=== PATIENT | male | born 1975 | race African-American/Black ===

== ENCOUNTER 2018-08-25 21:07 | Inpatient (IN) | payer MEDICAID ==
[~2018-08-25] VITALS: Ht 175.3 cm; Wt 62.2 kg
[~2018-08-25 21:07] MED LIST: SODIUM CHLORIDE 0.9% 10ML VIAL ONE; VECURONIUM BROMIDE 10 MG/VIAL IV ONE
[2018-08-25] MEDS ORDERED: ONDANSETRON HCL 4MG/2ML INJ IV STA (22:44)
[2018-08-25] MEDS ORDERED: SODIUM CHLORIDE 0.9% 1000ML BAG (SEPSIS BOLUS) IV ONE (22:45)
[2018-08-25] MEDS ORDERED: VANCOMYCIN 1 G PREMIX 200 ML IV ONE (22:45)
[2018-08-25] MEDS ORDERED: PIPERACILLIN/TAZ 3.375G PREMIX 50 ML IV ONE (22:45)
[2018-08-25] MEDS ORDERED: MIDAZOLAM HCL 2 MG/2 ML VIAL IV ONE (23:00)
[2018-08-25 23:29] LABS: CLARITY URINE TURBID (CLEAR); KETONES URINE 1+ (NEGATIVE); LEUKOCYTE ESTERASE URINE 3+ (NEGATIVE); NITRITE URINE POSITIVE (NEGATIVE); OCCULT BLOOD URINE 3+ (NEGATIVE); PROTEIN URINE 3+ (NEGATIVE); SPECIFIC GRAVITY URINE 1.013 (1.005-1.030)
[2018-08-25 23:31] LABS: BG BASE EXCESS -4.6 mmol/L (-2.0-2.0); BG CARBOXYHEMOGLOBIN 0.7 % (0.5-1.5); BG DEOXYHEMOGLOBIN 2.5 % (0.0-5.0); BG FRACTION INSPIRED OXYGEN 21; BG HCO3 ACT 18.6 mmol/L (22.0-26.0); BG OXYGEN SATURATION 97.5 % (92.0-98.5); BG OXYHEMOGLOBIN 96.8 % (94.0-97.0); BG PCO2 27.7 mmHg (35.0-45.0); BG PH 7.445 (7.350-7.450); BG PO2 100.5 mmHg (75.0-100.0); BG SAMPLE SITE RIGHT RADIAL; BG TOTAL HEMOGLOBIN 8.7 g/dL (12.0-18.0); BG VENT MODE ROOM AIR
[2018-08-25 23:34] LABS: COLOR URINE BLOODY (YELLOW)
[2018-08-25 23:57] LABS: *AMPHETAMINES SCREEN URINE PRESUMTIVE POSITIVE (NEGATIVE); *BARBITURATES SCREEN URINE NEGATIVE (NEGATIVE); *BENZODIAZEPINES SCREEN URINE NEGATIVE (NEGATIVE); *COCAINE SCREEN URINE PRESUMTIVE POSITIVE (NEGATIVE)
[2018-08-25 23:58] LABS: CANNABINOID URINE SCREEN PRESUMTIVE POSITIVE (NEGATIVE); METHADONE URINE SCREEN NEGATIVE (NEGATIVE); OPIATES URINE SCREEN NEGATIVE (NEGATIVE); PHENCYCLIDINE URINE SCREEN PRESUMTIVE POSITIVE (NEGATIVE)
[2018-08-26] VITALS (58 sets, daily range): BP systolic 82–154; BP diastolic 42–113
[2018-08-26 00:11] LABS: HEMATOCRIT. 28.6 % (42.0-52.0); HEMOGLOBIN. 8.7 g/dL (14.0-18.0); MEAN CORPUSCULAR HEMOGLOBIN 21.6 pg (28.0-32.0); MEAN CORPUSCULAR VOLUME 71.3 fL (80.0-94.0); MEAN PLATELET VOLUME 6.9 fl (7.4-10.4); PLATELET 527 x1000/uL (130-400); RED BLOOD CELL COUNT 4.01 mill/uL (4.7-6.1); RED CELL DISTRIBUTION WIDTH 24.3 % (11.6-14.6)
[2018-08-26] MEDS ORDERED: MIDAZOLAM HCL 2 MG/2 ML VIAL IV ONE (00:15)
[2018-08-26 00:17] LABS: PROTHROMBIN TIME 10.4 sec (9.1-11.1)
[2018-08-26 00:21] LABS: CHLORIDE 99 mEq/L (98-107)
[2018-08-26 00:25] LABS: ETHANOL BLOOD < 10 mg/dL
[2018-08-26 00:29] LABS: CREATINE KINASE 327 IU/L (39-308)
[2018-08-26] MEDS ORDERED: HALOPERIDOL LACTATE 5MG/ML VIAL IM ONE (01:30)
[2018-08-26] MEDS ORDERED: DIPHENHYDRAMINE 50MG/ML VIAL IV ONE (01:30)
[2018-08-26] MEDS ORDERED: NOREPINEPHRINE 4 MG in DEXT 5% WATER 250 ML IV STA (01:37)
[2018-08-26] MEDS ORDERED: NOREPINEPHRINE 4MG/250ML PMX 250 ML IV PRN (02:00)
[2018-08-26 02:03] LABS: ATYPICAL LYMPHOCYTES 2; NUCLEATED RED BLOOD CELLS 2 /100 WBC; PLATELET ESTIMATE INCREASED
[2018-08-26] MEDS ORDERED: VECURONIUM BROMIDE 10 MG/VIAL IV ONE (02:15)
[2018-08-26] MEDS ORDERED: PROPOFOL 10MG/ML 100ML 100 ML IV ONE ×2 (02:15→07:58)
[2018-08-26] MEDS ORDERED: IOHEXOL-300 100 ML BOTTLE ONE (03:29)
[2018-08-26 03:30] LABS: BG CARBOXYHEMOGLOBIN 0.8 % (0.5-1.5); BG DEOXYHEMOGLOBIN 1.6 % (0.0-5.0); BG FRACTION INSPIRED OXYGEN 40; BG HCO3 ACT 16.6 mmol/L (22.0-26.0); BG METHEMOGLOBIN 0.2 % (0.0-1.5); BG OXYGEN SATURATION 98.4 % (92.0-98.5); BG OXYHEMOGLOBIN 97.4 % (94.0-97.0); BG PCO2 30.2 mmHg (35.0-45.0); BG PH 7.358 (7.350-7.450); BG PO2 122.5 mmHg (75.0-100.0); BG SAMPLE SITE RIGHT RADIAL; BG TIDAL VOLUME(mL) 500 mL; BG TOTAL HEMOGLOBIN 7.9 g/dL (12.0-18.0); BG VENT MODE VENT - A/C; BG VENT RATE 14 set
[2018-08-26] MEDS ORDERED: MIDAZOLAM HCL 50 MG in DEXTROSE 5% WATER 40 ML IV PRN ×4 (05:15)
[2018-08-26] MEDS ORDERED: LORAZEPAM 2MG/ML CPJ IV PRN (08:15)
[2018-08-26] MEDS ORDERED: ENOXAPARIN 40MG/0.4ML SYR SUBCUT SCH (08:15)
[2018-08-26] MEDS ORDERED: MORPHINE SULFATE 4 MG/ML CPJ (NOT FOR IM USE) IV PRN ×2 (08:15→16:15)
[2018-08-26] MEDS ORDERED: HYDROCODONE/ACETAMINOPHEN 5/325MG TABLET PO PRN (08:15)
[2018-08-26] MEDS ORDERED: CEFTRIAXONE 1 G PREMIX 50 ML IV SCH (10:00)
[2018-08-26] MEDS ORDERED: IPRATROPIUM/ALBUTEROL 0.5-3(2.5)MG/3ML NEB HHN PRN (10:00)
[2018-08-26 10:15] LABS: BASOPHILS % 0.2 % (0.0-2.0); HEMATOCRIT. 25.5 % (42.0-52.0); HEMOGLOBIN. 7.7 g/dL (14.0-18.0); MEAN CORPUSCULAR HEMOGLOBIN 21.8 pg (28.0-32.0); MEAN CORPUSCULAR VOLUME 72.4 fL (80.0-94.0); MEAN PLATELET VOLUME 6.6 fl (7.4-10.4); MONOCYTES % 3.4 % (2.0-8.0); NEUTROPHILS % 83.4 % (40.0-76.0); PLATELET 487 x1000/uL (130-400); RED BLOOD CELL COUNT 3.52 mill/uL (4.7-6.1)
[2018-08-26 10:33] LABS: CHLORIDE 109 mEq/L (98-107)
[2018-08-26] MEDS: PANTOPRAZOLE SODIUM 40 MG/VIAL IV SCH (11:20)
[2018-08-26] MEDS: ENOXAPARIN 30MG/0.3ML SYR SUBCUT SCH ×2 (11:24→23:58)
[2018-08-26] MEDS: SODIUM CHLORIDE 0.9% 1,000 ML IV SCH ×3 (11:24→20:47)
[2018-08-26] MEDS: PROPOFOL 10MG/ML 100ML 100 ML IV PRN ×3 (11:37→19:53)
[2018-08-26] MEDS: IPRATROPIUM/ALBUTEROL 0.5-3(2.5)MG/3ML NEB HHN SCH ×3 (12:00→21:06)
[2018-08-26] MEDS: FENTANYL CITRATE/PF 500 MCG in SODIUM CHLORIDE 0.9% 40 ML IV PRN ×3 (12:39→22:32)
[2018-08-26 12:55] LABS: HEPATITIS B SURFACE ANTIGEN NEGATIVE
[2018-08-26 13:25] LABS: HEPATITIS A AB IGM NEGATIVE (NEGATIVE)
[2018-08-26] MEDS ORDERED: NOREPINEPHRINE 32 MG in DEXT 5% WATER 468 ML IV PRN (14:00)
[2018-08-26 15:55] LABS: CREATINE KINASE MB FRACTION 21.4 ng/mL (0.5-3.6)
[2018-08-26 16:05] LABS: CREATINE KINASE 1334 IU/L (39-308)
[2018-08-26] MEDS: LORAZEPAM 2MG/ML CPJ IV PRN (16:30)
[2018-08-26] MEDS: PIPERACILLIN/TAZOBACTAM 3.375 G in DEXT 5% WATER 100 ML IV SCH ×2 (17:08→17:16)
[2018-08-26] MEDS: VANCOMYCIN 1250MG in DEXTROSE 5% WATER 250ML IV SCH ×2 (17:43→23:58)
[2018-08-26] MEDS: ACETAMINOPHEN 325MG TABLET PO PRN (19:38)
[2018-08-26 23:23] LABS: CREATINE KINASE MB FRACTION 17.4 ng/mL (0.5-3.6)
[2018-08-26 23:32] LABS: CREATINE KINASE 1654 IU/L (39-308)
[2018-08-27] VITALS (95 sets, daily range): BP systolic 94–149; BP diastolic 48–101
[2018-08-27] MEDS: IPRATROPIUM/ALBUTEROL 0.5-3(2.5)MG/3ML NEB HHN SCH ×6 (00:38→20:11)
[2018-08-27] MEDS: PROPOFOL 10MG/ML 100ML 100 ML IV PRN ×2 (01:21→06:16)
[2018-08-27] MEDS: PIPERACILLIN/TAZOBACTAM 3.375 G in DEXT 5% WATER 100 ML IV SCH ×2 (02:52→09:06)
[2018-08-27] MEDS: FENTANYL CITRATE/PF 500 MCG in SODIUM CHLORIDE 0.9% 40 ML IV PRN ×3 (04:00→12:53)
[2018-08-27 06:07] LABS: BG BASE EXCESS -2.2 mmol/L (-2.0-2.0); BG HCO3 ACT 21.5 mmol/L (22.0-26.0); BG METHEMOGLOBIN 0.3 % (0.0-1.5); BG OXYHEMOGLOBIN 97.7 % (94.0-97.0); BG PCO2 32.4 mmHg (35.0-45.0); BG PO2 158.3 mmHg (75.0-100.0); BG SAMPLE SITE RIGHT RADIAL; BG VENT MODE VENT - A/C; BG VENT RATE 14 set
[2018-08-27 06:14] LABS: BASOPHILS % 0.3 % (0.0-2.0); EOSINOPHILS % 1.6 % (0.0-5.0); HEMATOCRIT. 26.6 % (42.0-52.0); HEMOGLOBIN. 7.9 g/dL (14.0-18.0); LYMPHOCYTES % 15.8 % (20.0-50.0); MEAN CORPUSCULAR HEMOGLOBIN 21.4 pg (28.0-32.0); MEAN PLATELET VOLUME 6.5 fl (7.4-10.4); MONOCYTES % 6.1 % (2.0-8.0); NEUTROPHILS % 76.2 % (40.0-76.0); PLATELET 494 x1000/uL (130-400); RED BLOOD CELL COUNT 3.69 mill/uL (4.7-6.1); RED CELL DISTRIBUTION WIDTH 24.2 % (11.6-14.6)
[2018-08-27] MEDS: SODIUM CHLORIDE 0.9% 1,000 ML IV SCH ×4 (06:31→21:45)
[2018-08-27 07:33] LABS: CHLORIDE 109 mEq/L (98-107)
[2018-08-27] MEDS: ENOXAPARIN 30MG/0.3ML SYR SUBCUT SCH ×2 (09:08→21:52)
[2018-08-27] MEDS: PANTOPRAZOLE SODIUM 40 MG/VIAL IV SCH (09:08)
[2018-08-27] MEDS: VANCOMYCIN 1250MG in DEXTROSE 5% WATER 250ML IV SCH (10:40)
[2018-08-27 13:13] LABS: HIV SCREEN 4G Non Reactive (Non Reactive)
[2018-08-27 13:53] LABS: PLATELET ESTIMATE INCREASED
[2018-08-27] MEDS ORDERED: PIPERACILLIN/TAZ 3.375G PREMIX 50 ML IV SCH (15:00)
[2018-08-27] MEDS: CEFAZOLIN 2,000 MG in DEXT 5% WATER 100 ML IV SCH (16:34)
[2018-08-27] MEDS ORDERED: VANCOMYCIN 1 G PREMIX 200 ML IV SCH (18:00)
[2018-08-28] VITALS (70 sets, daily range): BP systolic 92–148; BP diastolic 25–104
[2018-08-28] MEDS: IPRATROPIUM/ALBUTEROL 0.5-3(2.5)MG/3ML NEB HHN SCH ×7 (00:05→23:55)
[2018-08-28] MEDS: CEFAZOLIN 2,000 MG in DEXT 5% WATER 100 ML IV SCH ×3 (00:36→15:58)
[2018-08-28] MEDS: ACETAMINOPHEN 325MG TABLET PO PRN (00:36)
[2018-08-28] MEDS: FENTANYL CITRATE/PF 500 MCG in SODIUM CHLORIDE 0.9% 40 ML IV PRN ×3 (01:40→15:59)
[2018-08-28] MEDS: SODIUM CHLORIDE 0.9% 1,000 ML IV SCH ×2 (04:57→11:32)
[2018-08-28 06:06] LABS: HEMATOCRIT. 23.6 % (42.0-52.0); HEMOGLOBIN. 7.2 g/dL (14.0-18.0); MEAN CORPUSCULAR HEMOGLOBIN 21.8 pg (28.0-32.0); MEAN CORPUSCULAR VOLUME 71.7 fL (80.0-94.0); MEAN PLATELET VOLUME 6.7 fl (7.4-10.4); PLATELET 439 x1000/uL (130-400); RED BLOOD CELL COUNT 3.29 mill/uL (4.7-6.1); RED CELL DISTRIBUTION WIDTH 24.1 % (11.6-14.6)
[2018-08-28 06:12] LABS: CHLORIDE 110 mEq/L (98-107)
[2018-08-28 06:28] LABS: PHOSPHORUS 2.4 mg/dL (2.5-4.9)
[2018-08-28] MEDS: LORAZEPAM 2MG/ML CPJ IV PRN (07:48)
[2018-08-28] MEDS: ENOXAPARIN 30MG/0.3ML SYR SUBCUT SCH (08:14)
[2018-08-28] MEDS: PANTOPRAZOLE SODIUM 40 MG/VIAL IV SCH (08:14)
[2018-08-28] MEDS: ASCORBIC ACID 500 MG TABLET PO SCH (08:14)
[2018-08-28] MEDS: ZINC SULFATE 220 MG ( 50 ) CAPSULE PO SCH (08:14)
[2018-08-28 08:26] LABS: BG BASE EXCESS 1.6 mmol/L (-2.0-2.0); BG CARBOXYHEMOGLOBIN 0.4 % (0.5-1.5); BG DEOXYHEMOGLOBIN 1.1 % (0.0-5.0); BG FRACTION INSPIRED OXYGEN 40; BG HCO3 ACT 27.2 mmol/L (22.0-26.0); BG METHEMOGLOBIN 0.7 % (0.0-1.5); BG OXYGEN SATURATION 98.9 % (92.0-98.5); BG OXYHEMOGLOBIN 97.8 % (94.0-97.0); BG PCO2 48.1 mmHg (35.0-45.0); BG PO2 136.4 mmHg (75.0-100.0); BG SAMPLE SITE RIGHT RADIAL; BG TIDAL VOLUME(mL) 500 mL; BG VENT MODE VENT - A/C; BG VENT RATE 14 set
[2018-08-28 08:47] LABS: NUCLEATED RED BLOOD CELLS 1 /100 WBC
[2018-08-28 08:49] LABS: PLATELET ESTIMATE SLIGHTLY INCREASED
[2018-08-28] MEDS: PROPOFOL 10MG/ML 100ML 100 ML IV PRN ×2 (09:44→23:18)
[2018-08-28] MEDS ORDERED: POTASSIUM PHOS,M-BASIC-D-BASIC 15 MMOL in DEXT 5% WATER 245 ML IV NR (11:00)
[2018-08-28] MEDS: MICONAZOLE NITRATE 2% OINT 71GM TOP SCH (21:30)
[2018-08-29] VITALS (37 sets, daily range): BP systolic 57–144; BP diastolic 32–89
[2018-08-29] MEDS: SODIUM CHLORIDE 0.9% 1,000 ML IV SCH ×2 (01:53→16:01)
[2018-08-29] MEDS: IPRATROPIUM/ALBUTEROL 0.5-3(2.5)MG/3ML NEB HHN SCH ×5 (04:04→20:08)
[2018-08-29] MEDS: FENTANYL CITRATE/PF 500 MCG in SODIUM CHLORIDE 0.9% 40 ML IV PRN ×2 (04:35→04:38)
[2018-08-29 05:21] LABS: CHLORIDE 110 mEq/L (98-107)
[2018-08-29 05:27] LABS: PHOSPHORUS 3.1 mg/dL (2.5-4.9)
[2018-08-29 05:50] LABS: BASOPHILS % 0.8 % (0.0-2.0); EOSINOPHILS % 4.7 % (0.0-5.0); HEMATOCRIT. 25.9 % (42.0-52.0); HEMOGLOBIN. 7.9 g/dL (14.0-18.0); LYMPHOCYTES % 28.5 % (20.0-50.0); MEAN CORPUSCULAR HEMOGLOBIN 21.9 pg (28.0-32.0); MEAN CORPUSCULAR VOLUME 71.6 fL (80.0-94.0); MEAN PLATELET VOLUME 6.5 fl (7.4-10.4); MONOCYTES % 8.9 % (2.0-8.0); NEUTROPHILS % 57.1 % (40.0-76.0); PLATELET 502 x1000/uL (130-400); RED BLOOD CELL COUNT 3.62 mill/uL (4.7-6.1); RED CELL DISTRIBUTION WIDTH 24.2 % (11.6-14.6)
[2018-08-29] MEDS: PROPOFOL 10MG/ML 100ML 100 ML IV PRN (06:31)
[2018-08-29 08:45] LABS: BG BASE EXCESS 2.1 mmol/L (-2.0-2.0); BG CARBOXYHEMOGLOBIN 0.8 % (0.5-1.5); BG DEOXYHEMOGLOBIN 0.7 % (0.0-5.0); BG FRACTION INSPIRED OXYGEN 40; BG HCO3 ACT 26.7 mmol/L (22.0-26.0); BG METHEMOGLOBIN 0.2 % (0.0-1.5); BG OXYGEN SATURATION 99.3 % (92.0-98.5); BG OXYHEMOGLOBIN 98.3 % (94.0-97.0); BG PCO2 41.8 mmHg (35.0-45.0); BG PH 7.424 (7.350-7.450); BG PO2 171.8 mmHg (75.0-100.0); BG SAMPLE SITE RIGHT RADIAL; BG TIDAL VOLUME(mL) 500 mL; BG TOTAL HEMOGLOBIN 8.2 g/dL (12.0-18.0); BG VENT MODE VENT - A/C; BG VENT RATE 14 set
[2018-08-29] MEDS: MICONAZOLE NITRATE 2% OINT 71GM TOP SCH ×2 (09:00→21:00)
[2018-08-29] MEDS: ENOXAPARIN 40MG/0.4ML SYR SUBCUT SCH (09:00)
[2018-08-29] MEDS ORDERED: LIDOCAINE HCL/EPINEPHRINE 1%-EPI 1:100,000 20 ML VIAL INFIL NR (10:00)
[2018-08-29] MEDS ORDERED: LIDOCAINE HCL/EPINEPHRINE 1%-EPI 1:100,000 30 ML VIAL INFIL NR (10:00)
[2018-08-29] MEDS: ZINC SULFATE 220 MG ( 50 ) CAPSULE PO SCH (10:16)
[2018-08-29] MEDS: PANTOPRAZOLE SODIUM 40 MG/VIAL IV SCH (10:16)
[2018-08-29] MEDS: RISPERIDONE 1MG TABLET PO SCH (10:16)
[2018-08-29] MEDS: ASCORBIC ACID 500 MG TABLET PO SCH (10:16)
[2018-08-29 10:21] LABS: BG CARBOXYHEMOGLOBIN 0.3 % (0.5-1.5); BG DEOXYHEMOGLOBIN 0.9 % (0.0-5.0); BG FRACTION INSPIRED OXYGEN 40; BG HCO3 ACT 24.2 mmol/L (22.0-26.0); BG METHEMOGLOBIN 0.1 % (0.0-1.5); BG OXYGEN SATURATION 99.1 % (92.0-98.5); BG OXYHEMOGLOBIN 98.7 % (94.0-97.0); BG PCO2 37.5 mmHg (35.0-45.0); BG PH 7.428 (7.350-7.450); BG PO2 153.8 mmHg (75.0-100.0); BG PRESSURE SUPPORT 8; BG SAMPLE SITE RIGHT RADIAL; BG TOTAL HEMOGLOBIN 8.2 g/dL (12.0-18.0); BG VENT MODE VENT - CPAP
[2018-08-29] MEDS: CEFAZOLIN 2,000 MG in DEXT 5% WATER 100 ML IV SCH ×4 (12:46→18:00)
[2018-08-30] VITALS (21 sets, daily range): BP systolic 90–140; BP diastolic 46–96
[2018-08-30] MEDS: IPRATROPIUM/ALBUTEROL 0.5-3(2.5)MG/3ML NEB HHN SCH ×6 (00:09→21:03)
[2018-08-30] MEDS: CEFAZOLIN 2,000 MG in DEXT 5% WATER 100 ML IV SCH ×3 (00:24→19:00)
[2018-08-30 06:17] LABS: HEMATOCRIT. 25.2 % (42.0-52.0); HEMOGLOBIN. 7.8 g/dL (14.0-18.0); MEAN CORPUSCULAR HEMOGLOBIN 21.9 pg (28.0-32.0); MEAN CORPUSCULAR VOLUME 70.5 fL (80.0-94.0); MEAN PLATELET VOLUME 6.4 fl (7.4-10.4); PLATELET 519 x1000/uL (130-400); RED BLOOD CELL COUNT 3.58 mill/uL (4.7-6.1); RED CELL DISTRIBUTION WIDTH 24.1 % (11.6-14.6)
[2018-08-30 06:36] LABS: CHLORIDE 106 mEq/L (98-107)
[2018-08-30 08:20] LABS: PLATELET ESTIMATE INCREASED
[2018-08-30] MEDS: ASCORBIC ACID 500 MG TABLET PO SCH (08:51)
[2018-08-30] MEDS: ZINC SULFATE 220 MG ( 50 ) CAPSULE PO SCH (08:51)
[2018-08-30] MEDS: PANTOPRAZOLE SODIUM 40 MG/VIAL IV SCH (08:51)
[2018-08-30] MEDS: RISPERIDONE 1MG TABLET PO SCH (08:51)
[2018-08-30] MEDS: MICONAZOLE NITRATE 2% OINT 71GM TOP SCH ×2 (08:53→21:00)
[2018-08-30] MEDS: ENOXAPARIN 40MG/0.4ML SYR SUBCUT SCH (09:00)
[2018-08-30] MEDS: POTASSIUM CHLORIDE 20MEQ/PACKET PO SCH (11:27)
[2018-08-30] MEDS: SODIUM CHLORIDE 0.9% 1,000 ML IV SCH (18:59)
[2018-08-31] VITALS (11 sets, daily range): BP systolic 95–140; BP diastolic 45–93
[2018-08-31] MEDS: CEFAZOLIN 2,000 MG in DEXT 5% WATER 100 ML IV SCH ×3 (00:41→16:19)
[2018-08-31] MEDS: IPRATROPIUM/ALBUTEROL 0.5-3(2.5)MG/3ML NEB HHN SCH ×6 (00:50→20:42)
[2018-08-31] MEDS: ASCORBIC ACID 500 MG TABLET PO SCH (08:38)
[2018-08-31] MEDS: POTASSIUM CHLORIDE 20MEQ/PACKET PO SCH (08:38)
[2018-08-31] MEDS: ZINC SULFATE 220 MG ( 50 ) CAPSULE PO SCH (08:38)
[2018-08-31] MEDS: ENOXAPARIN 40MG/0.4ML SYR SUBCUT SCH (08:38)
[2018-08-31] MEDS: MAGNESIUM OXIDE 400MG TABLET PO SCH (08:39)
[2018-08-31] MEDS: MICONAZOLE NITRATE 2% OINT 71GM TOP SCH (08:43)
[2018-08-31] MEDS: RISPERIDONE 1MG TABLET PO SCH (08:52)
[2018-08-31] MEDS: HYDROCODONE/ACETAMINOPHEN 5/325MG TABLET PO PRN (08:54)
[2018-09-01] VITALS (8 sets, daily range): BP systolic 98–147; BP diastolic 53–103
[2018-09-01] MEDS: CEFAZOLIN 2,000 MG in DEXT 5% WATER 100 ML IV SCH ×2 (00:19→09:01)
[2018-09-01] MEDS: IPRATROPIUM/ALBUTEROL 0.5-3(2.5)MG/3ML NEB HHN SCH ×6 (00:20→20:24)
[2018-09-01] MEDS: MICONAZOLE NITRATE 2% OINT 71GM TOP SCH ×3 (00:25→21:11)
[2018-09-01] MEDS: RISPERIDONE 1MG TABLET PO SCH (09:00)
[2018-09-01] MEDS: POTASSIUM CHLORIDE 20MEQ/PACKET PO SCH (09:00)
[2018-09-01] MEDS: ASCORBIC ACID 500 MG TABLET PO SCH (09:00)
[2018-09-01] MEDS: MAGNESIUM OXIDE 400MG TABLET PO SCH (09:00)
[2018-09-01] MEDS: ENOXAPARIN 40MG/0.4ML SYR SUBCUT SCH (09:01)
[2018-09-01] MEDS: ZINC SULFATE 220 MG ( 50 ) CAPSULE PO SCH (10:32)
[2018-09-01 10:55] LABS: CHLORIDE 102 mEq/L (98-107)
[2018-09-01 10:57] LABS: BASOPHILS % 0.5 % (0.0-2.0); EOSINOPHILS % 3.1 % (0.0-5.0); HEMATOCRIT. 28.3 % (42.0-52.0); HEMOGLOBIN. 8.7 g/dL (14.0-18.0); LYMPHOCYTES % 20.5 % (20.0-50.0); MEAN CORPUSCULAR HEMOGLOBIN 21.8 pg (28.0-32.0); MEAN CORPUSCULAR VOLUME 70.9 fL (80.0-94.0); MEAN PLATELET VOLUME 6.5 fl (7.4-10.4); MONOCYTES % 4.3 % (2.0-8.0); NEUTROPHILS % 71.6 % (40.0-76.0); PLATELET 656 x1000/uL (130-400); RED BLOOD CELL COUNT 3.99 mill/uL (4.7-6.1); RED CELL DISTRIBUTION WIDTH 24.8 % (11.6-14.6)
[2018-09-01] MEDS: CEPHALEXIN 250MG CAPSULE PO SCH (21:09)
[2018-09-02] VITALS (7 sets, daily range): BP systolic 99–135; BP diastolic 57–76
[2018-09-02] MEDS: IPRATROPIUM/ALBUTEROL 0.5-3(2.5)MG/3ML NEB HHN SCH ×6 (00:21→20:53)
[2018-09-02] MEDS: CEPHALEXIN 250MG CAPSULE PO SCH ×3 (05:07→21:07)
[2018-09-02] MEDS: MAGNESIUM OXIDE 400MG TABLET PO SCH (08:40)
[2018-09-02] MEDS: RISPERIDONE 1MG TABLET PO SCH (08:40)
[2018-09-02] MEDS: ENOXAPARIN 40MG/0.4ML SYR SUBCUT SCH (08:40)
[2018-09-02] MEDS: ZINC SULFATE 220 MG ( 50 ) CAPSULE PO SCH (08:40)
[2018-09-02] MEDS: POTASSIUM CHLORIDE 20MEQ/PACKET PO SCH (08:40)
[2018-09-02] MEDS: ASCORBIC ACID 500 MG TABLET PO SCH (08:41)
[2018-09-02] MEDS: MICONAZOLE NITRATE 2% OINT 71GM TOP SCH ×2 (08:41→21:07)
[2018-09-03] VITALS: BP 106/63
[2018-09-03] MEDS: IPRATROPIUM/ALBUTEROL 0.5-3(2.5)MG/3ML NEB HHN SCH ×7 (00:34→20:24)
[2018-09-03 04:00] VITALS: BP 104/58
[2018-09-03] MEDS: CEPHALEXIN 250MG CAPSULE PO SCH ×3 (06:03→21:24)
[2018-09-03 08:00] VITALS: BP 109/73
[2018-09-03] MEDS: MAGNESIUM OXIDE 400MG TABLET PO SCH (10:25)
[2018-09-03] MEDS: RISPERIDONE 1MG TABLET PO SCH (10:25)
[2018-09-03] MEDS: ZINC SULFATE 220 MG ( 50 ) CAPSULE PO SCH (10:26)
[2018-09-03] MEDS: ASCORBIC ACID 500 MG TABLET PO SCH (10:26)
[2018-09-03] MEDS: POTASSIUM CHLORIDE 20MEQ/PACKET PO SCH (10:26)
[2018-09-03] MEDS: ENOXAPARIN 40MG/0.4ML SYR SUBCUT SCH (10:26)
[2018-09-03] MEDS: MICONAZOLE NITRATE 2% OINT 71GM TOP SCH ×2 (10:29→21:28)
[2018-09-03 12:00] VITALS: BP 112/69
[2018-09-03 16:00] VITALS: BP 103/64
[2018-09-03 20:00] VITALS: BP 103/69
[2018-09-04] VITALS: BP 110/66
[2018-09-04] MEDS: IPRATROPIUM/ALBUTEROL 0.5-3(2.5)MG/3ML NEB HHN SCH ×5 (00:12→20:46)
[2018-09-04 04:00] VITALS: BP 102/54
[2018-09-04] MEDS: CEPHALEXIN 250MG CAPSULE PO SCH ×3 (05:18→22:51)
[2018-09-04 08:00] VITALS: BP 120/71
[2018-09-04] MEDS: POTASSIUM CHLORIDE 20MEQ/PACKET PO SCH (09:39)
[2018-09-04] MEDS: ENOXAPARIN 40MG/0.4ML SYR SUBCUT SCH (09:39)
[2018-09-04] MEDS: MAGNESIUM OXIDE 400MG TABLET PO SCH (09:40)
[2018-09-04] MEDS: MICONAZOLE NITRATE 2% OINT 71GM TOP SCH ×2 (09:40→22:54)
[2018-09-04] MEDS: ZINC SULFATE 220 MG ( 50 ) CAPSULE PO SCH (09:40)
[2018-09-04] MEDS: RISPERIDONE 1MG TABLET PO SCH (09:40)
[2018-09-04] MEDS: ASCORBIC ACID 500 MG TABLET PO SCH (09:40)
[2018-09-04 13:00] VITALS: BP 103/66
[2018-09-04 16:00] VITALS: BP 111/57
[2018-09-04 20:00] VITALS: BP 101/51
[2018-09-04] MEDS: HYDROCODONE/ACETAMINOPHEN 5/325MG TABLET PO PRN (22:52)
[2018-09-04] MEDS: ACETAMINOPHEN 325MG TABLET PO PRN (22:52)
[2018-09-05] VITALS: BP 103/60
[2018-09-05] MEDS: IPRATROPIUM/ALBUTEROL 0.5-3(2.5)MG/3ML NEB HHN SCH ×7 (00:35→20:13)
[2018-09-05 04:00] VITALS: BP 106/67
[2018-09-05] MEDS: CEPHALEXIN 250MG CAPSULE PO SCH ×3 (06:07→21:57)
[2018-09-05 08:00] VITALS: BP 90/56
[2018-09-05] MEDS: ENOXAPARIN 40MG/0.4ML SYR SUBCUT SCH (08:30)
[2018-09-05] MEDS: ASCORBIC ACID 500 MG TABLET PO SCH (08:30)
[2018-09-05] MEDS: MAGNESIUM OXIDE 400MG TABLET PO SCH (08:30)
[2018-09-05] MEDS: POTASSIUM CHLORIDE 20MEQ/PACKET PO SCH (08:30)
[2018-09-05] MEDS: ZINC SULFATE 220 MG ( 50 ) CAPSULE PO SCH (08:30)
[2018-09-05] MEDS: RISPERIDONE 1MG TABLET PO SCH (08:30)
[2018-09-05] MEDS: MICONAZOLE NITRATE 2% OINT 71GM TOP SCH ×2 (09:00→21:57)
[2018-09-05 12:00] VITALS: BP 99/61
[2018-09-05 16:00] VITALS: BP 115/50
[2018-09-05 20:00] VITALS: BP 102/50
[2018-09-06] VITALS (7 sets, daily range): BP systolic 102–113; BP diastolic 49–65
[2018-09-06] MEDS: IPRATROPIUM/ALBUTEROL 0.5-3(2.5)MG/3ML NEB HHN SCH ×6 (01:26→21:52)
[2018-09-06] MEDS: CEPHALEXIN 250MG CAPSULE PO SCH ×3 (06:21→23:02)
[2018-09-06 06:51] LABS: CHLORIDE 97 mEq/L (98-107)
[2018-09-06 06:53] LABS: BASOPHILS % 1.1 % (0.0-2.0); HEMATOCRIT. 34.1 % (42.0-52.0); HEMOGLOBIN. 10.4 g/dL (14.0-18.0); LYMPHOCYTES % 36.8 % (20.0-50.0); MEAN CORPUSCULAR HEMOGLOBIN 21.7 pg (28.0-32.0); MEAN CORPUSCULAR VOLUME 71.6 fL (80.0-94.0); MEAN PLATELET VOLUME 6.3 fl (7.4-10.4); MONOCYTES % 7.9 % (2.0-8.0); NEUTROPHILS % 52.2 % (40.0-76.0); PLATELET 841 x1000/uL (130-400); RED BLOOD CELL COUNT 4.77 mill/uL (4.7-6.1); RED CELL DISTRIBUTION WIDTH 25.8 % (11.6-14.6)
[2018-09-06] MEDS: RISPERIDONE 1MG TABLET PO SCH (09:43)
[2018-09-06] MEDS: POTASSIUM CHLORIDE 20MEQ/PACKET PO SCH (09:44)
[2018-09-06] MEDS: MAGNESIUM OXIDE 400MG TABLET PO SCH (09:44)
[2018-09-06] MEDS: ZINC SULFATE 220 MG ( 50 ) CAPSULE PO SCH (09:44)
[2018-09-06] MEDS: ENOXAPARIN 40MG/0.4ML SYR SUBCUT SCH (09:44)
[2018-09-06] MEDS: ASCORBIC ACID 500 MG TABLET PO SCH (09:44)
[2018-09-06] MEDS: MICONAZOLE NITRATE 2% OINT 71GM TOP SCH ×2 (09:53→23:07)
[2018-09-07] VITALS: BP 99/52
[2018-09-07] MEDS: IPRATROPIUM/ALBUTEROL 0.5-3(2.5)MG/3ML NEB HHN SCH ×6 (02:52→20:43)
[2018-09-07 04:00] VITALS: BP 101/44
[2018-09-07] MEDS: CEPHALEXIN 250MG CAPSULE PO SCH ×3 (07:19→22:51)
[2018-09-07 08:00] VITALS: BP 106/66
[2018-09-07] MEDS: MAGNESIUM OXIDE 400MG TABLET PO SCH (09:14)
[2018-09-07] MEDS: ZINC SULFATE 220 MG ( 50 ) CAPSULE PO SCH (09:14)
[2018-09-07] MEDS: ASCORBIC ACID 500 MG TABLET PO SCH (09:14)
[2018-09-07] MEDS: RISPERIDONE 1MG TABLET PO SCH (09:14)
[2018-09-07] MEDS: ENOXAPARIN 40MG/0.4ML SYR SUBCUT SCH (09:15)
[2018-09-07] MEDS: POTASSIUM CHLORIDE 20MEQ/PACKET PO SCH (09:15)
[2018-09-07] MEDS: MICONAZOLE NITRATE 2% OINT 71GM TOP SCH ×2 (09:22→23:17)
[2018-09-07 12:00] VITALS: BP 99/57
[2018-09-07 16:00] VITALS: BP 104/58
[2018-09-07 20:00] VITALS: BP 102/51
[2018-09-08] VITALS: BP 97/58
[2018-09-08] MEDS: IPRATROPIUM/ALBUTEROL 0.5-3(2.5)MG/3ML NEB HHN SCH ×5 (00:30→21:19)
[2018-09-08 04:00] VITALS: BP 105/56
[2018-09-08] MEDS: CEPHALEXIN 250MG CAPSULE PO SCH ×3 (07:23→22:12)
[2018-09-08 08:00] VITALS: BP 110/69
[2018-09-08] MEDS: ASCORBIC ACID 500 MG TABLET PO SCH (09:09)
[2018-09-08] MEDS: MAGNESIUM OXIDE 400MG TABLET PO SCH (09:09)
[2018-09-08] MEDS: ZINC SULFATE 220 MG ( 50 ) CAPSULE PO SCH (09:09)
[2018-09-08] MEDS: RISPERIDONE 1MG TABLET PO SCH (09:09)
[2018-09-08] MEDS: POTASSIUM CHLORIDE 20MEQ/PACKET PO SCH (09:09)
[2018-09-08] MEDS: ENOXAPARIN 40MG/0.4ML SYR SUBCUT SCH (09:10)
[2018-09-08] MEDS: MICONAZOLE NITRATE 2% OINT 71GM TOP SCH ×2 (09:10→22:13)
[2018-09-08 12:00] VITALS: BP 112/65
[2018-09-08 16:00] VITALS: BP 99/59
[2018-09-08 20:00] VITALS: BP 102/58
[2018-09-09] VITALS: BP 104/60
[2018-09-09] MEDS: IPRATROPIUM/ALBUTEROL 0.5-3(2.5)MG/3ML NEB HHN SCH ×4 (00:50→12:28)
[2018-09-09 04:00] VITALS: BP 106/59
[2018-09-09 08:00] VITALS: BP 102/57
[2018-09-09] MEDS: ZINC SULFATE 220 MG ( 50 ) CAPSULE PO SCH (09:01)
[2018-09-09] MEDS: MAGNESIUM OXIDE 400MG TABLET PO SCH (09:01)
[2018-09-09] MEDS: POTASSIUM CHLORIDE 20MEQ/PACKET PO SCH (09:01)
[2018-09-09] MEDS: ASCORBIC ACID 500 MG TABLET PO SCH (09:01)
[2018-09-09] MEDS: RISPERIDONE 1MG TABLET PO SCH (09:01)
[2018-09-09] MEDS: MICONAZOLE NITRATE 2% OINT 71GM TOP SCH (09:02)
[2018-09-09] MEDS: ENOXAPARIN 40MG/0.4ML SYR SUBCUT SCH (09:02)
[2018-09-09 09:42] LABS: BASOPHILS % 2.5 % (0.0-2.0); EOSINOPHILS % 2.2 % (0.0-5.0); HEMATOCRIT. 31.5 % (42.0-52.0); HEMOGLOBIN. 9.7 g/dL (14.0-18.0); LYMPHOCYTES % 48.3 % (20.0-50.0); MEAN CORPUSCULAR HEMOGLOBIN 21.9 pg (28.0-32.0); MEAN CORPUSCULAR VOLUME 70.8 fL (80.0-94.0); MEAN PLATELET VOLUME 6.2 fl (7.4-10.4); MONOCYTES % 7.5 % (2.0-8.0); NEUTROPHILS % 39.5 % (40.0-76.0); PLATELET 756 x1000/uL (130-400); RED BLOOD CELL COUNT 4.45 mill/uL (4.7-6.1); RED CELL DISTRIBUTION WIDTH 25.1 % (11.6-14.6)
[2018-09-09 10:01] LABS: CHLORIDE 99 mEq/L (98-107)
[2018-09-09 11:26] LABS: PLATELET ESTIMATE INCREASED
[2018-09-09 12:00] VITALS: BP 100/63
[2018-09-09 16:00] VITALS: BP 112/64
[2018-09-09 17:18] VITALS: BP 112/62
== END 2018-09-09 19:05 | DRG 720 ==
LOC: EDBD 21:07 → ER 21:07 → EDBEDREQ 08-26 01:17 → EDBEDREQTM 08-26 01:17 → EDBEDREQDT 08-26 01:17 → MERGE 08-26 01:39 → CVICU 08-26 01:39 → EDBEDREQSVC 08-26 01:41 → EDBEDREQ 08-26 01:41 → ENRESERV 08-26 06:56 → SUPCPDRO 08-26 08:06 → 5EST 08-30 16:00 → 8WST 09-02 10:42 → 6EST 09-04 11:40
PROVIDERS: ADMIT Internal Medicine Nephrology; ATTEND Internal Medicine Nephrology
PROC: 5A1945Z Respiratory Ventilation, 24-96 Consecutive Hours (ICD-10-PCS; principal; 2018-08-26)
PROC: 0BH18EZ Insertion of Endotracheal Airway into Trachea, Via Natural or Artificial Opening Endoscopic (ICD-10-PCS; 2018-08-26)
PROC: 0BH17EZ Insertion of Endotracheal Airway into Trachea, Via Natural or Artificial Opening (ICD-10-PCS; 2018-08-26)
PROC: 0JBM0ZZ Excision of Left Upper Leg Subcutaneous Tissue and Fascia, Open Approach (ICD-10-PCS; 2018-08-30)
DX: A41.59 Other Gram-negative sepsis (principal); J96.00 Acute respiratory failure, unspecified whether with hypoxia or hypercapnia; E43 Unspecified severe protein-calorie malnutrition; L89.213 Pressure ulcer of right hip, stage 3; R65.21 Severe sepsis with septic shock; G92 Toxic encephalopathy; G82.20 Paraplegia, unspecified; L89.323 Pressure ulcer of left buttock, stage 3; L89.223 Pressure ulcer of left hip, stage 3; L89.313 Pressure ulcer of right buttock, stage 3; N13.6 Pyonephrosis; E87.6 Hypokalemia; D64.9 Anemia, unspecified; E22.1 Hyperprolactinemia; L89.610 Pressure ulcer of right heel, unstageable; T40.991A Poisoning by other psychodysleptics [hallucinogens], accidental (unintentional), initial encounter; T40.5X1A Poisoning by cocaine, accidental (unintentional), initial encounter; T40.7X1A Poisoning by cannabis (derivatives), accidental (unintentional), initial encounter; N31.9 Neuromuscular dysfunction of bladder, unspecified; B96.1 Klebsiella pneumoniae [K. pneumoniae] as the cause of diseases classified elsewhere; F16.10 Hallucinogen abuse, uncomplicated; F15.10 Other stimulant abuse, uncomplicated; F14.10 Cocaine abuse, uncomplicated; F12.10 Cannabis abuse, uncomplicated; Z68.20 Body mass index [BMI] 20.0-20.9, adult; Y92.89 Other specified places as the place of occurrence of the external cause; Z59.0 Homelessness; Z99.3 Dependence on wheelchair
CPT/HCPCS: 31500; 36415; 36600; 71045; 74177; 80048; 80202; 80305; 80307; 80329; 82140; 82375; 82550; 82553; 82805; 82962; 83605; 83735; 84100; 84134; 84145; 84443; 84478; 84484; 86705; 86709; 86803; 87070; 87077; 87186; 87340; 87389; 92610; 93005; 94002; 94003; 94640; 96365; 96375; 97110; 97162; 97530; 99291; A6261; C9113; J0690; J0696; J1200; J1630; J1650; J2060; J2250; J2405; J2543; J2704; J3010; J3370; J3490; J7030; J7040; J7060; J7620; Q9967; A4315

== ENCOUNTER 2018-12-17 06:12 | Inpatient (IN) | payer MEDICAID ==
[~2018-12-17] VITALS: Ht 172.7 cm; Wt 83.5 kg
[2018-12-17 07:15] LABS: HEMATOCRIT. 36.3 % (42.0-52.0); HEMOGLOBIN. 11.1 g/dL (14.0-18.0); MEAN CORPUSCULAR HEMOGLOBIN 20.1 pg (28.0-32.0); MEAN CORPUSCULAR VOLUME 65.6 fL (80.0-94.0); MEAN PLATELET VOLUME 8.3 fl (7.4-10.4); PLATELET 504 x1000/uL (130-400); RED BLOOD CELL COUNT 5.54 mill/uL (4.7-6.1); RED CELL DISTRIBUTION WIDTH 27.1 % (11.6-14.6)
[2018-12-17 07:16] LABS: CHLORIDE 106 mEq/L (98-107)
[2018-12-17 07:21] LABS: ETHANOL BLOOD < 10 mg/dL
[2018-12-17 07:34] LABS: NUCLEATED RED BLOOD CELLS 1 /100 WBC
[2018-12-17 07:35] LABS: CLARITY URINE CLOUDY (CLEAR); COLOR URINE YELLOW (YELLOW); KETONES URINE TRACE (NEGATIVE); LEUKOCYTE ESTERASE URINE 2+ (NEGATIVE); NITRITE URINE POSITIVE (NEGATIVE); OCCULT BLOOD URINE NEGATIVE (NEGATIVE); PH URINE 5.5 (4.5-8.0); PROTEIN URINE NEGATIVE (NEGATIVE); SPECIFIC GRAVITY URINE 1.015 (1.005-1.030)
[2018-12-17 07:35] LABS: PLATELET ESTIMATE INCREASED
[2018-12-17 07:54] LABS: *AMPHETAMINES SCREEN URINE PRESUMTIVE POSITIVE (NEGATIVE); *BARBITURATES SCREEN URINE NEGATIVE (NEGATIVE); *BENZODIAZEPINES SCREEN URINE NEGATIVE (NEGATIVE); *COCAINE SCREEN URINE PRESUMTIVE POSITIVE (NEGATIVE); CANNABINOID URINE SCREEN PRESUMTIVE POSITIVE (NEGATIVE); METHADONE URINE SCREEN NEGATIVE (NEGATIVE); OPIATES URINE SCREEN NEGATIVE (NEGATIVE); PHENCYCLIDINE URINE SCREEN NEGATIVE (NEGATIVE)
[2018-12-17] MEDS ORDERED: LEVOFLOXACIN 750MG PREMIX 150 ML IV ONE (08:15)
[2018-12-17] MEDS ORDERED: LEVOFLOXACIN 250MG TABLET PO ONE (08:15)
[2018-12-17] MEDS ORDERED: RISP2 PO (17:16)
[2018-12-17] MEDS ORDERED: FLUO10CA25 PO (17:16)
[2018-12-17 17:28] VITALS: BP 114/68
[2018-12-17 20:00] VITALS: BP 99/60
[2018-12-17] MEDS ORDERED: MAGNESIUM/ALUMINUM HYDROXIDE/SIMETHICONE 30ML UDC PO PRN (22:15)
[2018-12-17] MEDS ORDERED: ONDANSETRON HCL 4MG/2ML INJ IV PRN (22:15)
[2018-12-17] MEDS ORDERED: ACETAMINOPHEN 325MG TABLET PO PRN (22:15)
[2018-12-17] MEDS ORDERED: LEVOFLOXACIN 500MG PREMIX 100 ML IV SCH (22:15)
[2018-12-17] MEDS ORDERED: CLONIDINE 0.1MG TABLET PO PRN (22:15)
[2018-12-17] MEDS ORDERED: DIPHENHYDRAMINE 50MG/ML VIAL IV PRN (22:15)
[2018-12-17] MEDS ORDERED: POTASSIUM CHLORIDE 20MEQ TABLET SR PO NR (23:00)
[2018-12-17] MEDS: SODIUM CHLORIDE 0.9% 1,000 ML IV SCH (23:35)
[2018-12-17] MEDS: LEVOFLOXACIN 500MG PREMIX 100 ML IV SCH (23:41)
[2018-12-18] VITALS: BP 120/75
[2018-12-18 04:00] VITALS: BP 89/49
[2018-12-18 08:00] VITALS: BP 93/46
[2018-12-18] MEDS: SODIUM CHLORIDE 0.9% 1,000 ML IV SCH ×2 (08:59→18:39)
[2018-12-18] MEDS: ENOXAPARIN 40MG/0.4ML SYR SUBCUT SCH (10:26)
[2018-12-18 12:00] VITALS: BP 100/57
[2018-12-18 16:00] VITALS: BP 117/59
[2018-12-18 20:00] VITALS: BP 122/55
[2018-12-18] MEDS ORDERED: POTASSIUM CHLORIDE 20MEQ TABLET SR PO NR (20:15)
[2018-12-18] MEDS: RISPERIDONE 1MG TABLET PO SCH (21:40)
[2018-12-19] VITALS: BP 109/52
[2018-12-19] MEDS: LEVOFLOXACIN 500MG PREMIX 100 ML IV SCH ×2 (02:40→23:50)
[2018-12-19 04:00] VITALS: BP 117/48
[2018-12-19] MEDS: SODIUM CHLORIDE 0.9% 1,000 ML IV SCH ×2 (05:30→16:21)
[2018-12-19 08:00] VITALS: BP 101/53
[2018-12-19] MEDS: RISPERIDONE 1MG TABLET PO SCH ×2 (09:41→21:15)
[2018-12-19] MEDS: FLUOXETINE HCL 20MG CAPSULE PO SCH (09:41)
[2018-12-19] MEDS: ENOXAPARIN 40MG/0.4ML SYR SUBCUT SCH (09:41)
[2018-12-19 12:00] VITALS: BP 103/44
[2018-12-19 16:00] VITALS: BP 114/77
[2018-12-19 20:00] VITALS: BP 129/68
[2018-12-20] VITALS (7 sets, daily range): BP systolic 92–116; BP diastolic 42–85
[2018-12-20] MEDS: SODIUM CHLORIDE 0.9% 1,000 ML IV SCH ×3 (03:10→21:22)
[2018-12-20 09:27] LABS: BASOPHILS % 1.2 % (0.0-2.0); EOSINOPHILS % 6.7 % (0.0-5.0); HEMATOCRIT. 33.1 % (42.0-52.0); LYMPHOCYTES % 49.6 % (20.0-50.0); MEAN CORPUSCULAR HEMOGLOBIN 20.3 pg (28.0-32.0); MEAN CORPUSCULAR VOLUME 66.9 fL (80.0-94.0); MEAN PLATELET VOLUME 8.3 fl (7.4-10.4); MONOCYTES % 8.8 % (2.0-8.0); NEUTROPHILS % 33.7 % (40.0-76.0); PLATELET 377 x1000/uL (130-400); RED BLOOD CELL COUNT 4.94 mill/uL (4.7-6.1); RED CELL DISTRIBUTION WIDTH 25.9 % (11.6-14.6)
[2018-12-20] MEDS: RISPERIDONE 1MG TABLET PO SCH ×2 (10:04→21:00)
[2018-12-20] MEDS: FLUOXETINE HCL 20MG CAPSULE PO SCH (10:04)
[2018-12-20] MEDS: ENOXAPARIN 40MG/0.4ML SYR SUBCUT SCH (10:04)
[2018-12-20 10:10] LABS: CHLORIDE 105 mEq/L (98-107)
[2018-12-20 10:19] LABS: PHOSPHORUS 2.8 mg/dL (2.5-4.9)
[2018-12-20] MEDS: LEVOFLOXACIN 500MG TABLET PO SCH (21:00)
[2018-12-21] VITALS: BP 126/68
[2018-12-21 04:00] VITALS: BP 96/49
[2018-12-21 08:00] VITALS: BP 109/66
[2018-12-21] MEDS: FLUOXETINE HCL 20MG CAPSULE PO SCH (09:29)
[2018-12-21] MEDS: ENOXAPARIN 40MG/0.4ML SYR SUBCUT SCH (09:30)
[2018-12-21] MEDS: RISPERIDONE 1MG TABLET PO SCH ×2 (09:30→21:33)
[2018-12-21] MEDS: SODIUM CHLORIDE 0.9% 1,000 ML IV SCH (09:43)
[2018-12-21 12:00] VITALS: BP 109/68
[2018-12-21 16:00] VITALS: BP 103/60
[2018-12-21 20:00] VITALS: BP 102/52
[2018-12-21] MEDS: LEVOFLOXACIN 500MG TABLET PO SCH (21:33)
[2018-12-22] VITALS: BP 123/53
[2018-12-22 04:00] VITALS: BP 107/57
[2018-12-22 08:00] VITALS: BP 106/56
[2018-12-22] MEDS: ENOXAPARIN 40MG/0.4ML SYR SUBCUT SCH (09:20)
[2018-12-22] MEDS: RISPERIDONE 1MG TABLET PO SCH ×2 (09:20→20:16)
[2018-12-22] MEDS: FLUOXETINE HCL 20MG CAPSULE PO SCH (09:20)
[2018-12-22 12:00] VITALS: BP 120/69
[2018-12-22 16:37] VITALS: BP 107/50
[2018-12-22 20:00] VITALS: BP 110/54
[2018-12-22] MEDS: LEVOFLOXACIN 500MG TABLET PO SCH (20:16)
[2018-12-23] VITALS: BP 121/56
[2018-12-23 04:00] VITALS: BP 119/71
[2018-12-23] MEDS: RISPERIDONE 1MG TABLET PO SCH (09:26)
[2018-12-23] MEDS: FLUOXETINE HCL 20MG CAPSULE PO SCH (09:26)
[2018-12-23] MEDS: ENOXAPARIN 40MG/0.4ML SYR SUBCUT SCH (09:28)
[2018-12-23 14:21] VITALS: BP 124/67
[2018-12-23 16:00] VITALS: BP 109/64
[2018-12-23 20:00] VITALS: BP 104/52
== END 2018-12-23 20:58 | DRG 720 ==
LOC: ER 06:12 → 5WST 14:36 → ENRESERV 15:20 → 6EST 12-23 12:45
PROVIDERS: ADMIT Internal Medicine; ATTEND Internal Medicine
DX: A41.9 Sepsis, unspecified organism (principal); L89.313 Pressure ulcer of right buttock, stage 3; G82.20 Paraplegia, unspecified; N39.0 Urinary tract infection, site not specified; F15.10 Other stimulant abuse, uncomplicated; F14.10 Cocaine abuse, uncomplicated; F12.10 Cannabis abuse, uncomplicated; F31.9 Bipolar disorder, unspecified; E87.6 Hypokalemia; F17.200 Nicotine dependence, unspecified, uncomplicated; Z59.0 Homelessness; Z82.49 Family history of ischemic heart disease and other diseases of the circulatory system; Z83.3 Family history of diabetes mellitus
CPT/HCPCS: 36415; 71045; 80048; 80305; 80320; 83735; 84100; 84134; 87077; 87186; 93005; 96365; 97162; 97166; 97530; 97535; 99285; J1650; J1956; J7030; G0480

== ENCOUNTER 2019-01-06 23:49 | Emergency (ER) | payer MEDICAID ==
[~2019-01-06] VITALS: Ht 175.3 cm; Wt 100.0 kg
[~2019-01-06 23:49] MED LIST changes: +FLUO10CA25 PO; +RISP2 PO; -SODIUM CHLORIDE 0.9% 10ML VIAL ONE; -VECURONIUM BROMIDE 10 MG/VIAL IV ONE
[2019-01-07] MEDS ORDERED: ONDANSETRON HCL 4MG/2ML INJ IV STA (01:14)
[2019-01-07] MEDS ORDERED: SODIUM CHLORIDE 0.9% 1,000 ML IV ONE (01:14)
[2019-01-07 01:38] LABS: HEMATOCRIT. 33.6 % (42.0-52.0); HEMOGLOBIN. 10.5 g/dL (14.0-18.0); MEAN CORPUSCULAR HEMOGLOBIN 20.8 pg (28.0-32.0); MEAN CORPUSCULAR VOLUME 66.5 fL (80.0-94.0); MEAN PLATELET VOLUME 8.1 fl (7.4-10.4); PLATELET 346 x1000/uL (130-400); RED BLOOD CELL COUNT 5.05 mill/uL (4.7-6.1); RED CELL DISTRIBUTION WIDTH 24.9 % (11.6-14.6)
[2019-01-07 01:42] LABS: CHLORIDE 108 mEq/L (98-107)
[2019-01-07 02:47] LABS: CLARITY URINE CLOUDY (CLEAR); COLOR URINE YELLOW (YELLOW); KETONES URINE TRACE (NEGATIVE); LEUKOCYTE ESTERASE URINE 3+ (NEGATIVE); NITRITE URINE POSITIVE (NEGATIVE); OCCULT BLOOD URINE 2+ (NEGATIVE); PH URINE 5.5 (4.5-8.0); PROTEIN URINE 2+ (NEGATIVE)
[2019-01-07 02:58] LABS: *AMPHETAMINES SCREEN URINE PRESUMTIVE POSITIVE (NEGATIVE); *BARBITURATES SCREEN URINE NEGATIVE (NEGATIVE); *BENZODIAZEPINES SCREEN URINE NEGATIVE (NEGATIVE); *COCAINE SCREEN URINE NEGATIVE (NEGATIVE); METHADONE URINE SCREEN NEGATIVE (NEGATIVE); OPIATES URINE SCREEN NEGATIVE (NEGATIVE); PHENCYCLIDINE URINE SCREEN NEGATIVE (NEGATIVE)
[2019-01-07 02:59] LABS: CANNABINOID URINE SCREEN PRESUMTIVE POSITIVE (NEGATIVE)
[2019-01-07] MEDS ORDERED: CEPHALEXIN 250MG CAPSULE PO ONE (05:00)
[2019-01-07] MEDS ORDERED: NA PHOS,M-B/NA PHOS,DI-BA ENEMA 118ML PR ONE (05:00)
[2019-01-07 07:02] LABS: PLATELET ESTIMATE NORMAL
[2019-01-07 09:07] VITALS: BP 124/74
[2019-01-27] MEDS ORDERED: FLUC100T MT (07:23)
== END 2019-01-07 09:26 | disposition home or self-care (01) ==
LOC: ER 23:49
DX: N39.0 Urinary tract infection, site not specified (principal); K59.00 Constipation, unspecified; I10 Essential (primary) hypertension; F15.10 Other stimulant abuse, uncomplicated; F12.10 Cannabis abuse, uncomplicated; F31.9 Bipolar disorder, unspecified; Z79.899 Other long term (current) drug therapy; Z86.69 Personal history of other diseases of the nervous system and sense organs
CPT/HCPCS: 36415; 74018; 80053; 80305; 81003; 83690; 85025; 96361; 96374; 99284; J2405; J7030; Z7610

== ENCOUNTER 2019-01-12 22:01 | Inpatient (IN) | payer MEDICAID ==
[~2019-01-12] VITALS: Ht 175.3 cm; Wt 79.8 kg
[2019-01-13] VITALS (8 sets, daily range): BP systolic 87–106; BP diastolic 37–52
[2019-01-13 00:09] LABS: EOSINOPHILS % 3.6 % (0.0-5.0); HEMATOCRIT. 33.2 % (42.0-52.0); HEMOGLOBIN. 10.3 g/dL (14.0-18.0); LYMPHOCYTES % 23.8 % (20.0-50.0); MEAN CORPUSCULAR HEMOGLOBIN 20.8 pg (28.0-32.0); MEAN CORPUSCULAR VOLUME 66.9 fL (80.0-94.0); MEAN PLATELET VOLUME 8.3 fl (7.4-10.4); MONOCYTES % 8.1 % (2.0-8.0); NEUTROPHILS % 63.5 % (40.0-76.0); PLATELET 346 x1000/uL (130-400); RED BLOOD CELL COUNT 4.96 mill/uL (4.7-6.1); RED CELL DISTRIBUTION WIDTH 25.1 % (11.6-14.6)
[2019-01-13 00:16] LABS: CHLORIDE 101 mEq/L (98-107)
[2019-01-13 00:18] LABS: PROTHROMBIN TIME 10.3 sec (9.6-11.0)
[2019-01-13 00:29] LABS: CLARITY URINE TURBID (CLEAR); KETONES URINE 2+ (NEGATIVE); LEUKOCYTE ESTERASE URINE 3+ (NEGATIVE); NITRITE URINE POSITIVE (NEGATIVE); OCCULT BLOOD URINE 3+ (NEGATIVE); PROTEIN URINE 3+ (NEGATIVE); SPECIFIC GRAVITY URINE 1.016 (1.005-1.030)
[2019-01-13 00:35] LABS: COLOR URINE BLOODY (YELLOW)
[2019-01-13] MEDS ORDERED: CEFTRIAXONE 1 G PREMIX 50 ML IV ONE (01:00)
[2019-01-13 01:29] LABS: BASOPHILS % 1.2 % (0.0-2.0); EOSINOPHILS % 4.5 % (0.0-5.0); HEMATOCRIT. 28.2 % (42.0-52.0); HEMOGLOBIN. 8.6 g/dL (14.0-18.0); LYMPHOCYTES % 39.6 % (20.0-50.0); MEAN CORPUSCULAR HEMOGLOBIN 20.6 pg (28.0-32.0); MEAN CORPUSCULAR VOLUME 67.8 fL (80.0-94.0); MEAN PLATELET VOLUME 6.3 fl (7.4-10.4); MONOCYTES % 9.1 % (2.0-8.0); NEUTROPHILS % 45.6 % (40.0-76.0); PLATELET 291 x1000/uL (130-400); RED BLOOD CELL COUNT 4.15 mill/uL (4.7-6.1); RED CELL DISTRIBUTION WIDTH 25.2 % (11.6-14.6)
[2019-01-13 01:36] LABS: INR 1.1; PROTHROMBIN TIME 11.1 sec (9.6-11.0)
[2019-01-13] MEDS ORDERED: MAGNESIUM/ALUMINUM HYDROXIDE/SIMETHICONE 30ML UDC PO PRN (03:00)
[2019-01-13] MEDS ORDERED: ONDANSETRON HCL 4MG/2ML INJ IV PRN (03:00)
[2019-01-13] MEDS ORDERED: LORAZEPAM 0.5MG TABLET PO PRN (03:00)
[2019-01-13] MEDS ORDERED: LEVOFLOXACIN 500MG PREMIX 100 ML IV SCH (03:00)
[2019-01-13] MEDS ORDERED: DIPHENHYDRAMINE 50MG/ML VIAL IV PRN (03:00)
[2019-01-13] MEDS ORDERED: CLONIDINE 0.1MG TABLET PO PRN (03:00)
[2019-01-13] MEDS ORDERED: SODIUM CHLORIDE 0.9% 1,000 ML IV SCH (08:00)
[2019-01-13] MEDS: ACETAMINOPHEN 325MG TABLET PO PRN ×3 (09:41→23:14)
[2019-01-13] MEDS: FLUOXETINE HCL 20MG CAPSULE PO SCH (12:07)
[2019-01-13] MEDS: RISPERIDONE 1MG TABLET PO SCH ×2 (12:07→21:51)
[2019-01-13] MEDS: LEVOFLOXACIN 500MG PREMIX 100 ML IV SCH (15:01)
[2019-01-13 15:22] LABS: HEMATOCRIT 25.2 % (42.0-52.0)
[2019-01-13] MEDS ORDERED: HYDROCODONE/ACETAMINOPHEN 5/325MG TABLET PO PRN (17:30)
[2019-01-13] MEDS ORDERED: FLUO10CA25 MT (19:10)
[2019-01-13] MEDS ORDERED: RISP2 MT (19:10)
[2019-01-13] MEDS: SODIUM CHLORIDE 0.9% 1,000 ML IV SCH (23:14)
[2019-01-14] VITALS (13 sets, daily range): BP systolic 98–133; BP diastolic 50–67
[2019-01-14] MEDS ORDERED: CEFTRIAXONE 1 G PREMIX 50 ML IV SCH (06:00)
[2019-01-14 06:48] LABS: HEMATOCRIT 26.9 % (42.0-52.0); HEMOGLOBIN 8.8 g/dL (14.0-18.0); MEAN CORPUSCULAR HEMOGLOBIN 23.9 pg (28.0-32.0); MEAN CORPUSCULAR VOLUME 72.7 fL (80.0-94.0); PLATELET 228 x1000/uL (130-400); RED CELL DISTRIBUTION WIDTH 28.3 % (11.6-14.6)
[2019-01-14] MEDS: ACETAMINOPHEN 325MG TABLET PO PRN ×3 (07:34→18:52)
[2019-01-14] MEDS: LEVOFLOXACIN 500MG PREMIX 100 ML IV SCH (07:56)
[2019-01-14] MEDS: RISPERIDONE 1MG TABLET PO SCH ×2 (09:18→22:32)
[2019-01-14] MEDS: FLUOXETINE HCL 20MG CAPSULE PO SCH (09:18)
[2019-01-14] MEDS ORDERED: DIATR MEGLU/DIATRIZOATE SOLN 30ML PO SCH (16:00)
[2019-01-14] MEDS ORDERED: PIPERACILLIN/TAZOBACTAM 3.375 G in DEXT 5% WATER 100 ML IV SCH (16:00)
[2019-01-14] MEDS ORDERED: PIPERACILLIN/TAZ 3.375G PREMIX 50 ML IV SCH (18:00)
[2019-01-14] MEDS ORDERED: VANCOMYCIN 1 G PREMIX 200 ML IV SCH (18:30)
[2019-01-14] MEDS: SODIUM CHLORIDE 0.9% 1,000 ML IV SCH (22:34)
[2019-01-15] VITALS: BP 92/55
[2019-01-15 04:00] VITALS: BP 91/47
[2019-01-15 07:07] LABS: CHLORIDE 103 mEq/L (98-107)
[2019-01-15] MEDS: PIPERACILLIN/TAZ 3.375G PREMIX 50 ML IV SCH ×3 (07:08→21:43)
[2019-01-15 07:13] LABS: HEMATOCRIT. 23.5 % (42.0-52.0); HEMOGLOBIN. 7.8 g/dL (14.0-18.0); MEAN CORPUSCULAR HEMOGLOBIN 23.9 pg (28.0-32.0); MEAN CORPUSCULAR VOLUME 71.9 fL (80.0-94.0); MEAN PLATELET VOLUME 8.5 fl (7.4-10.4); PLATELET 213 x1000/uL (130-400); RED BLOOD CELL COUNT 3.27 mill/uL (4.7-6.1); RED CELL DISTRIBUTION WIDTH 27.6 % (11.6-14.6)
[2019-01-15] MEDS: FLUOXETINE HCL 20MG CAPSULE PO SCH (08:49)
[2019-01-15] MEDS: RISPERIDONE 1MG TABLET PO SCH ×2 (08:49→21:16)
[2019-01-15 12:00] VITALS: BP 119/56
[2019-01-15 12:37] LABS: PLATELET ESTIMATE NORMAL
[2019-01-15 16:00] VITALS: BP 120/58
[2019-01-15 20:00] VITALS: BP 103/49
[2019-01-15] MEDS: ACETAMINOPHEN 325MG TABLET PO PRN (20:02)
[2019-01-15] MEDS: SODIUM CHLORIDE 0.9% 1,000 ML IV SCH (21:18)
[2019-01-16 00:12] VITALS: BP 100/44
[2019-01-16 04:00] VITALS: BP 104/57
[2019-01-16] MEDS: PIPERACILLIN/TAZ 3.375G PREMIX 50 ML IV SCH ×3 (06:04→21:33)
[2019-01-16 08:00] VITALS: BP 119/51
[2019-01-16] MEDS: FLUOXETINE HCL 20MG CAPSULE PO SCH (10:11)
[2019-01-16] MEDS: RISPERIDONE 1MG TABLET PO SCH ×2 (10:11→21:32)
[2019-01-16] MEDS: ACETAMINOPHEN 325MG TABLET PO PRN ×3 (10:29→21:32)
[2019-01-16 12:00] VITALS: BP 101/49
[2019-01-16 20:00] VITALS: BP 116/61
[2019-01-16] MEDS: SODIUM CHLORIDE 0.9% 1,000 ML IV SCH (21:33)
[2019-01-17] VITALS: BP 92/60
[2019-01-17 04:00] VITALS: BP 115/60
[2019-01-17] MEDS: PIPERACILLIN/TAZ 3.375G PREMIX 50 ML IV SCH ×3 (06:03→21:15)
[2019-01-17] MEDS: ACETAMINOPHEN 325MG TABLET PO PRN (06:04)
[2019-01-17 08:00] VITALS: BP 109/49
[2019-01-17] MEDS: FLUOXETINE HCL 20MG CAPSULE PO SCH (09:25)
[2019-01-17] MEDS: RISPERIDONE 1MG TABLET PO SCH ×2 (09:25→21:15)
[2019-01-17 12:00] VITALS: BP 106/56
[2019-01-17 16:00] VITALS: BP 110/56
[2019-01-17] MEDS ORDERED: MAGNESIUM HYDROXIDE 400MG/5ML 30ML UDC PO PRN (16:30)
[2019-01-17] MEDS: BISACODYL 10MG SUPP PR SCH (17:08)
[2019-01-17] MEDS: DOCUSATE SODIUM 250MG CAPSULE PO SCH (17:08)
[2019-01-17 20:00] VITALS: BP 112/58
[2019-01-17] MEDS: SODIUM CHLORIDE 0.9% 1,000 ML IV SCH (21:24)
[2019-01-18] VITALS (12 sets, daily range): BP systolic 91–120; BP diastolic 48–84
[2019-01-18 05:50] LABS: CHLORIDE 103 mEq/L (98-107)
[2019-01-18 06:22] LABS: MEAN CORPUSCULAR HEMOGLOBIN 24.1 pg (28.0-32.0); MEAN CORPUSCULAR VOLUME 72.4 fL (80.0-94.0); MEAN PLATELET VOLUME 6.6 fl (7.4-10.4); PLATELET 344 x1000/uL (130-400); RED BLOOD CELL COUNT 2.88 mill/uL (4.7-6.1); RED CELL DISTRIBUTION WIDTH 28.7 % (11.6-14.6)
[2019-01-18] MEDS: PIPERACILLIN/TAZ 3.375G PREMIX 50 ML IV SCH ×2 (06:48→16:12)
[2019-01-18 06:56] LABS: HEMATOCRIT. 20.8 % (42.0-52.0); HEMOGLOBIN. 6.9 g/dL (14.0-18.0)
[2019-01-18] MEDS: BISACODYL 10MG SUPP PR SCH (09:00)
[2019-01-18] MEDS: RISPERIDONE 1MG TABLET PO SCH ×2 (09:51→21:04)
[2019-01-18] MEDS: DOCUSATE SODIUM 250MG CAPSULE PO SCH ×2 (09:51→17:00)
[2019-01-18] MEDS: FLUOXETINE HCL 20MG CAPSULE PO SCH (09:51)
[2019-01-18 14:26] LABS: PLATELET ESTIMATE NORMAL
[2019-01-18] MEDS: ACETAMINOPHEN 325MG TABLET PO PRN (16:31)
[2019-01-18] MEDS: SODIUM CHLORIDE 0.9% 1,000 ML IV SCH (21:04)
[2019-01-18 21:07] LABS: HEMATOCRIT 21.2 % (42.0-52.0); HEMOGLOBIN 7.2 g/dL (14.0-18.0)
[2019-01-19] VITALS (7 sets, daily range): BP systolic 95–132; BP diastolic 48–82
[2019-01-19] MEDS: PIPERACILLIN/TAZ 3.375G PREMIX 50 ML IV SCH ×4 (00:21→20:44)
[2019-01-19 01:05] LABS: HEMATOCRIT 26.1 % (42.0-52.0); HEMOGLOBIN 8.8 g/dL (14.0-18.0)
[2019-01-19] MEDS: SODIUM CHLORIDE 0.9% 1,000 ML IV SCH ×2 (05:44→18:16)
[2019-01-19 08:50] LABS: HEMATOCRIT. 27.1 % (42.0-52.0); HEMOGLOBIN. 8.9 g/dL (14.0-18.0); MEAN CORPUSCULAR VOLUME 75.7 fL (80.0-94.0); MEAN PLATELET VOLUME 6.3 fl (7.4-10.4); PLATELET 434 x1000/uL (130-400); RED BLOOD CELL COUNT 3.58 mill/uL (4.7-6.1); RED CELL DISTRIBUTION WIDTH 28.6 % (11.6-14.6)
[2019-01-19] MEDS: BISACODYL 10MG SUPP PR SCH (09:00)
[2019-01-19] MEDS: RISPERIDONE 1MG TABLET PO SCH ×2 (10:04→20:44)
[2019-01-19] MEDS: FLUOXETINE HCL 20MG CAPSULE PO SCH (10:04)
[2019-01-19] MEDS: DOCUSATE SODIUM 250MG CAPSULE PO SCH ×2 (10:04→17:00)
[2019-01-19 10:20] LABS: PLATELET ESTIMATE SLIGHTLY INCREASED
[2019-01-20] VITALS: BP 108/56
[2019-01-20] MEDS: SODIUM CHLORIDE 0.9% 1,000 ML IV SCH ×3 (02:50→22:30)
[2019-01-20 04:00] VITALS: BP 120/64
[2019-01-20] MEDS: PIPERACILLIN/TAZ 3.375G PREMIX 50 ML IV SCH ×3 (05:18→22:30)
[2019-01-20 08:00] VITALS: BP 122/66
[2019-01-20] MEDS: BISACODYL 10MG SUPP PR SCH (09:00)
[2019-01-20] MEDS: DOCUSATE SODIUM 250MG CAPSULE PO SCH ×2 (09:00→17:00)
[2019-01-20] MEDS: FLUOXETINE HCL 20MG CAPSULE PO SCH (09:17)
[2019-01-20] MEDS: RISPERIDONE 1MG TABLET PO SCH ×2 (09:17→20:37)
[2019-01-20 12:00] VITALS: BP 119/60
[2019-01-20 16:00] VITALS: BP 95/54
[2019-01-20 20:00] VITALS: BP 140/54
[2019-01-21] VITALS: BP 103/63
[2019-01-21 04:00] VITALS: BP 121/37
[2019-01-21] MEDS: PIPERACILLIN/TAZ 3.375G PREMIX 50 ML IV SCH ×2 (05:54→13:56)
[2019-01-21 08:00] VITALS: BP 123/75
[2019-01-21] MEDS: SODIUM CHLORIDE 0.9% 1,000 ML IV SCH ×2 (08:50→13:56)
[2019-01-21] MEDS: DOCUSATE SODIUM 250MG CAPSULE PO SCH ×2 (09:00→16:49)
[2019-01-21] MEDS: BISACODYL 10MG SUPP PR SCH (09:00)
[2019-01-21] MEDS: FLUOXETINE HCL 20MG CAPSULE PO SCH (09:26)
[2019-01-21] MEDS: RISPERIDONE 1MG TABLET PO SCH (09:26)
[2019-01-21 12:00] VITALS: BP 119/62
[2019-01-21 12:01] LABS: BASOPHILS % 0.6 % (0.0-2.0); EOSINOPHILS % 4.4 % (0.0-5.0); HEMATOCRIT. 27.4 % (42.0-52.0); LYMPHOCYTES % 25.3 % (20.0-50.0); MEAN CORPUSCULAR HEMOGLOBIN 25.3 pg (28.0-32.0); MEAN CORPUSCULAR VOLUME 76.8 fL (80.0-94.0); MEAN PLATELET VOLUME 6.3 fl (7.4-10.4); MONOCYTES % 6.3 % (2.0-8.0); NEUTROPHILS % 63.4 % (40.0-76.0); PLATELET 670 x1000/uL (130-400); RED BLOOD CELL COUNT 3.57 mill/uL (4.7-6.1); RED CELL DISTRIBUTION WIDTH 29.1 % (11.6-14.6)
[2019-01-21 12:13] LABS: CHLORIDE 106 mEq/L (98-107)
[2019-01-21] MEDS ORDERED: METRONIDAZOLE 500MG TABLET PO SCH (14:30)
[2019-01-21 16:00] VITALS: BP_SYST 127; BP_SYST 136; BP_DIAS 62; BP_DIAS 86
[2019-01-21] MEDS ORDERED: CEFTRIAXONE 2 G in DEXTROSE 5% WATER 50 ML IV SCH (16:00)
[2019-01-21 20:24] VITALS: BP 107/21
[2019-01-21] MEDS ORDERED: AMOXICILLIN/POTASSIUM CLAVULANATE 875/125MG TAB PO SCH (21:00)
[2019-01-22] MEDS ORDERED: ASCORBIC ACID 500 MG TABLET PO SCH (09:00)
[2019-01-22] MEDS ORDERED: ZINC SULFATE 220 MG ( 50 ) CAPSULE PO SCH (09:00)
[2019-01-22] MEDS ORDERED: LEVOFLOXACIN 250MG TABLET PO SCH (11:00)
[2019-01-27] MEDS ORDERED: FLUC100T MT (07:23)
== END 2019-01-21 20:26 | DRG 720 ==
LOC: ER 22:01 → 7WST 01-13 02:01 → ENRESERV 01-13 04:39
PROVIDERS: ADMIT Internal Medicine; ATTEND Internal Medicine
PROC: 0T9B80Z Drainage of Bladder with Drainage Device, Via Natural or Artificial Opening Endoscopic (ICD-10-PCS; principal; 2019-01-14)
DX: A41.9 Sepsis, unspecified organism (principal); N17.0 Acute kidney failure with tubular necrosis; L89.313 Pressure ulcer of right buttock, stage 3; G82.20 Paraplegia, unspecified; L03.311 Cellulitis of abdominal wall; N31.9 Neuromuscular dysfunction of bladder, unspecified; S37.30XA Unspecified injury of urethra, initial encounter; N30.91 Cystitis, unspecified with hematuria; N48.89 Other specified disorders of penis; F31.9 Bipolar disorder, unspecified; I10 Essential (primary) hypertension; N28.9 Disorder of kidney and ureter, unspecified; N43.3 Hydrocele, unspecified; D64.9 Anemia, unspecified; R33.8 Other retention of urine; F99 Mental disorder, not otherwise specified; X58.XXXA Exposure to other specified factors, initial encounter; Y93.89 Activity, other specified; Y92.89 Other specified places as the place of occurrence of the external cause; Y99.8 Other external cause status; Z87.891 Personal history of nicotine dependence; Z82.49 Family history of ischemic heart disease and other diseases of the circulatory system; Z83.3 Family history of diabetes mellitus
CPT/HCPCS: 36415; 74176; 76857; 76870; 80048; 84134; 85014; 85018; 85027; 86850; 86900; 86920; 93976; 96374; 99285; A6261; J0696; J1200; J1956; J2405; J2543; J3370; J7030; J7040; J7050; J7060; P9016; Q9963; A4315

== ENCOUNTER 2019-01-24 10:44 | Inpatient (IN) | payer MEDICAID ==
[~2019-01-24] VITALS: Ht 170.2 cm; Wt 79.4 kg
[~2019-01-24 10:44] MED LIST changes: +FLUO10CA25 MT; +RISP2 MT
[2019-01-24] MEDS ORDERED: PIPERACILLIN/TAZ 3.375G PREMIX 50 ML IV ONE (11:30)
[2019-01-24] MEDS ORDERED: ACETAMINOPHEN 325MG TABLET PO ONE (11:30)
[2019-01-24] MEDS ORDERED: CEFTRIAXONE 1 G PREMIX 50 ML IV ONE (11:30)
[2019-01-24] MEDS ORDERED: SODIUM CHLORIDE 0.9% 1000ML BAG (SEPSIS BOLUS) IV ONE (11:30)
[2019-01-24 11:46] LABS: HEMATOCRIT. 32.4 % (42.0-52.0); HEMOGLOBIN. 10.3 g/dL (14.0-18.0); MEAN CORPUSCULAR HEMOGLOBIN 24.6 pg (28.0-32.0); MEAN CORPUSCULAR VOLUME 77.7 fL (80.0-94.0); MEAN PLATELET VOLUME 6.3 fl (7.4-10.4); PLATELET 835 x1000/uL (130-400); RED BLOOD CELL COUNT 4.16 mill/uL (4.7-6.1); RED CELL DISTRIBUTION WIDTH 29.5 % (11.6-14.6)
[2019-01-24 11:53] LABS: CHLORIDE 102 mEq/L (98-107); INR 1.1; PROTHROMBIN TIME 11.2 sec (9.6-11.0)
[2019-01-24] MEDS: CLINDAMYCIN 600 MG in DEXTROSE 5% WATER 50 ML IV ONE ×2 (12:15→13:00)
[2019-01-24] MEDS ORDERED: IOHEXOL-300 100 ML BOTTLE ONE (12:21)
[2019-01-24] MEDS ORDERED: CLINDAMYCIN 600MG PREMIX 50 ML IV SCH (13:00)
[2019-01-24 13:01] LABS: PLATELET ESTIMATE INCREASED
[2019-01-24 16:47] LABS: CLARITY URINE CLOUDY (CLEAR); COLOR URINE YELLOW (YELLOW); KETONES URINE NEGATIVE (NEGATIVE); LEUKOCYTE ESTERASE URINE 2+ (NEGATIVE); NITRITE URINE NEGATIVE (NEGATIVE); OCCULT BLOOD URINE 3+ (NEGATIVE); PH URINE 6.5 (4.5-8.0); PROTEIN URINE TRACE (NEGATIVE); SPECIFIC GRAVITY URINE 1.016 (1.005-1.030)
[2019-01-24] MEDS ORDERED: FLUCONAZOLE 150MG TABLET PO NR (17:30)
[2019-01-24 18:20] VITALS: BP 117/55
[2019-01-24 18:40] VITALS: BP 117/55
[2019-01-24 20:00] VITALS: BP 114/61
[2019-01-24 20:17] VITALS: BP 114/64
[2019-01-24] MEDS ORDERED: PIPERACILLIN/TAZ 3.375G PREMIX 50 ML IV SCH (21:45)
[2019-01-24] MEDS ORDERED: FERR-71 PO (21:56)
[2019-01-24] MEDS ORDERED: ACET-2178 PO (21:56)
[2019-01-24] MEDS ORDERED: DOCU-138 PO (21:56)
[2019-01-24] MEDS ORDERED: MULT-1116 PO (21:56)
[2019-01-24] MEDS ORDERED: ACET-2178 MT (21:56)
[2019-01-24] MEDS ORDERED: ASCO500C15 PO (21:56)
[2019-01-24] MEDS ORDERED: AMOX-424 PO (21:56)
[2019-01-24] MEDS ORDERED: FLUO20CA33 PO (21:58)
[2019-01-24] MEDS ORDERED: LEVO500T2 PO (21:58)
[2019-01-24] MEDS: PIPERACILLIN/TAZ 3.375G PREMIX 50 ML IV SCH (23:58)
[2019-01-25] VITALS (7 sets, daily range): BP systolic 91–110; BP diastolic 41–63
[2019-01-25] MEDS: PIPERACILLIN/TAZ 3.375G PREMIX 50 ML IV SCH ×4 (07:02→23:28)
[2019-01-25] MEDS: ASCORBIC ACID 500 MG TABLET PO SCH ×3 (09:00→09:33)
[2019-01-25] MEDS: FLUOXETINE HCL 10 MG CAPSULE PO SCH (09:32)
[2019-01-25] MEDS: MULTIVITAMINS,THER W-MINERALS TABLET PO SCH (09:32)
[2019-01-25] MEDS: FERROUS SULFATE 325MG TABLET PO SCH (09:32)
[2019-01-25 13:37] LABS: BASOPHILS % 0.8 % (0.0-2.0); EOSINOPHILS % 2.3 % (0.0-5.0); HEMATOCRIT. 29.6 % (42.0-52.0); HEMOGLOBIN. 9.6 g/dL (14.0-18.0); LYMPHOCYTES % 16.7 % (20.0-50.0); MEAN CORPUSCULAR HEMOGLOBIN 25.3 pg (28.0-32.0); MEAN CORPUSCULAR VOLUME 77.8 fL (80.0-94.0); MEAN PLATELET VOLUME 6.2 fl (7.4-10.4); MONOCYTES % 4.1 % (2.0-8.0); NEUTROPHILS % 76.1 % (40.0-76.0); PLATELET 748 x1000/uL (130-400); RED BLOOD CELL COUNT 3.81 mill/uL (4.7-6.1)
[2019-01-25 13:44] LABS: CHLORIDE 104 mEq/L (98-107)
[2019-01-25 13:57] LABS: PLATELET ESTIMATE INCREASED
[2019-01-25] MEDS: FLUCONAZOLE 200 MG/100ML BAG 100 ML IV SCH (21:50)
[2019-01-25] MEDS: RISPERIDONE 1MG TABLET PO SCH (21:51)
[2019-01-26] VITALS: BP 99/52
[2019-01-26 04:00] VITALS: BP 97/46
[2019-01-26] MEDS: PIPERACILLIN/TAZ 3.375G PREMIX 50 ML IV SCH ×4 (06:28→23:46)
[2019-01-26 08:00] VITALS: BP 107/32
[2019-01-26] MEDS: FERROUS SULFATE 325MG TABLET PO SCH (08:43)
[2019-01-26] MEDS: ASCORBIC ACID 500 MG TABLET PO SCH (08:43)
[2019-01-26] MEDS: FLUOXETINE HCL 10 MG CAPSULE PO SCH (08:43)
[2019-01-26] MEDS: MULTIVITAMINS,THER W-MINERALS TABLET PO SCH (08:43)
[2019-01-26 12:00] VITALS: BP 98/45
[2019-01-26 16:00] VITALS: BP 102/62
[2019-01-26 20:00] VITALS: BP 99/53
[2019-01-26] MEDS: FLUCONAZOLE 200 MG/100ML BAG 100 ML IV SCH (20:33)
[2019-01-26] MEDS: RISPERIDONE 1MG TABLET PO SCH ×2 (20:33→20:42)
[2019-01-27] VITALS: BP 115/60
[2019-01-27 04:00] VITALS: BP 118/70
[2019-01-27] MEDS: PIPERACILLIN/TAZ 3.375G PREMIX 50 ML IV SCH ×2 (06:07→13:26)
[2019-01-27] MEDS ORDERED: FLUC100T MT (07:23)
[2019-01-27 07:39] LABS: BASOPHILS % 0.8 % (0.0-2.0); EOSINOPHILS % 3.1 % (0.0-5.0); HEMATOCRIT. 31.9 % (42.0-52.0); HEMOGLOBIN. 10.3 g/dL (14.0-18.0); LYMPHOCYTES % 14.8 % (20.0-50.0); MEAN CORPUSCULAR HEMOGLOBIN 25.4 pg (28.0-32.0); MEAN CORPUSCULAR VOLUME 78.2 fL (80.0-94.0); MEAN PLATELET VOLUME 6.3 fl (7.4-10.4); MONOCYTES % 5.9 % (2.0-8.0); NEUTROPHILS % 75.4 % (40.0-76.0); PLATELET 766 x1000/uL (130-400); RED BLOOD CELL COUNT 4.07 mill/uL (4.7-6.1); RED CELL DISTRIBUTION WIDTH 28.7 % (11.6-14.6)
[2019-01-27 07:41] LABS: CHLORIDE 103 mEq/L (98-107)
[2019-01-27 08:00] VITALS: BP 105/59
[2019-01-27] MEDS: FLUOXETINE HCL 10 MG CAPSULE PO SCH (09:55)
[2019-01-27] MEDS: ASCORBIC ACID 500 MG TABLET PO SCH (09:55)
[2019-01-27] MEDS: FERROUS SULFATE 325MG TABLET PO SCH (09:55)
[2019-01-27] MEDS: MULTIVITAMINS,THER W-MINERALS TABLET PO SCH (09:55)
[2019-01-27 12:00] VITALS: BP 117/67
[2019-01-27 14:40] VITALS: BP 117/67
== END 2019-01-27 14:56 | DRG 720 ==
LOC: ER 10:44 → 5WST 13:23 → EDBEDREQTM 13:33 → EDBEDREQ 13:33 → ENRESERV 15:30
PROVIDERS: ADMIT Family Medicine; ATTEND Family Medicine
DX: A41.9 Sepsis, unspecified organism (principal); G82.20 Paraplegia, unspecified; N13.30 Unspecified hydronephrosis; N49.2 Inflammatory disorders of scrotum; F31.9 Bipolar disorder, unspecified; I10 Essential (primary) hypertension; R65.20 Severe sepsis without septic shock; D63.8 Anemia in other chronic diseases classified elsewhere
CPT/HCPCS: 36415; 71045; 74177; 76870; 80048; 83605; 83880; 84145; 84484; 87106; 93005; 93970; 93976; 96374; 99285; J1450; J2543; J3490; J7030; J7040; J7060; Q9967

== ENCOUNTER 2019-05-06 15:14 | Emergency (ER) | payer MEDICAID ==
[~2019-05-06] VITALS: Ht 175.3 cm; Wt 77.0 kg
[~2019-05-06 15:14] MED LIST changes: +ASCO500C15 PO; +DOCU-138 PO; +FERR-71 PO; +FLUC100T MT; -FLUO10CA25 MT; +TOPUD PO
[2019-05-06 15:24] VITALS: BP 134/93
== END 2019-05-06 18:34 | disposition left against medical advice (07) ==
LOC: ER 15:14
DX: R68.89 Other general symptoms and signs (principal); Z53.21 Procedure and treatment not carried out due to patient leaving prior to being seen by health care provider

== ENCOUNTER 2019-07-30 06:13 | Emergency (ER) | payer MEDICAID ==
[~2019-07-30] VITALS: Ht 175.3 cm; Wt 73.0 kg
[2019-07-30] MEDS ORDERED: ALPRAZOLAM 0.25 MG TABLET PO ONE (06:45)
[2019-07-30] MEDS ORDERED: LORAZEPAM 2MG/ML CPJ IM ONE (22:45)
[2019-07-30] MEDS ORDERED: OLANZAPINE 10 MG/VIAL IM ONE (22:45)
[2019-07-31 11:00] VITALS: BP 142/69
== END 2019-07-31 11:11 | disposition home or self-care (01) ==
LOC: ER 06:13
DX: Z04.89 Encounter for examination and observation for other specified reasons (principal); R44.0 Auditory hallucinations; F32.9 Major depressive disorder, single episode, unspecified; I10 Essential (primary) hypertension; G40.909 Epilepsy, unspecified, not intractable, without status epilepticus; Z59.0 Homelessness; Z75.1 Person awaiting admission to adequate facility elsewhere
CPT/HCPCS: 96372; 99283; J2060; J3490; Z7610

== ENCOUNTER 2020-01-22 23:27 | Emergency (ER) | payer MEDICAID | END 2020-01-22 23:55 | disposition left against medical advice (07) | LOC: ER 23:27 | DX: Z53.21 Procedure and treatment not carried out due to patient leaving prior to being seen by health care provider (principal) ==

== ENCOUNTER 2020-06-15 20:31 | Emergency (ER) | payer MEDICAID ==
[~2020-06-15] VITALS: Ht 170.2 cm; Wt 79.0 kg
[2020-06-15 22:05] LABS: CLARITY URINE CLOUDY (CLEAR); COLOR URINE YELLOW (YELLOW); KETONES URINE NEGATIVE (NEGATIVE); LEUKOCYTE ESTERASE URINE 2+ (NEGATIVE); NITRITE URINE NEGATIVE (NEGATIVE); OCCULT BLOOD URINE 2+ (NEGATIVE); PH URINE 5.5 (4.5-8.0); PROTEIN URINE 1+ (NEGATIVE); SPECIFIC GRAVITY URINE 1.019 (1.005-1.030)
[2020-06-15] MEDS ORDERED: LIDOCAINE HCL/PF 1% 10 MG/ML 5ML VIAL IJ NR (23:45)
[2020-06-15] MEDS ORDERED: CEFTRIAXONE SODIUM 1 G/VIAL IM NR (23:45)
[2020-06-15 23:48] VITALS: BP 116/68
== END 2020-06-15 23:49 | disposition home or self-care (01) ==
LOC: ER 20:31
DX: T82.41XA Breakdown (mechanical) of vascular dialysis catheter, initial encounter (principal); N39.0 Urinary tract infection, site not specified; F17.200 Nicotine dependence, unspecified, uncomplicated; I10 Essential (primary) hypertension; Z79.899 Other long term (current) drug therapy; X58.XXXA Exposure to other specified factors, initial encounter; Y93.89 Activity, other specified; Y92.89 Other specified places as the place of occurrence of the external cause; Y99.8 Other external cause status
CPT/HCPCS: 51702; 81003; 87077; 87086; 87186; 93005; 96372; 99284; J0696; J3490; A4315

== ENCOUNTER 2020-07-31 11:37 | Emergency (ER) | payer MEDICAID ==
[~2020-07-31] VITALS: Ht 177.8 cm; Wt 77.5 kg
[2020-07-31 19:57] VITALS: BP 135/81
== END 2020-07-31 20:00 | disposition home or self-care (01) ==
LOC: ER 11:39
DX: T83.018A Breakdown (mechanical) of other urinary catheter, initial encounter (principal); R33.8 Other retention of urine; G82.50 Quadriplegia, unspecified; Y73.8 Miscellaneous gastroenterology and urology devices associated with adverse incidents, not elsewhere classified; Y92.028 Other place in mobile home as the place of occurrence of the external cause; Z87.828 Personal history of other (healed) physical injury and trauma; R03.0 Elevated blood-pressure reading, without diagnosis of hypertension; F20.9 Schizophrenia, unspecified
CPT/HCPCS: 87077; 87186; 93005; 99285

== ENCOUNTER 2020-09-08 11:35 | Emergency (ER) | payer MEDICAID ==
[~2020-09-08] VITALS: Ht 175.3 cm; Wt 77.0 kg
[2020-09-08 12:23] LABS: CLARITY URINE TURBID (CLEAR); COLOR URINE DK YELLOW (YELLOW); KETONES URINE NEGATIVE (NEGATIVE); LEUKOCYTE ESTERASE URINE 3+ (NEGATIVE); NITRITE URINE NEGATIVE (NEGATIVE); OCCULT BLOOD URINE NEGATIVE (NEGATIVE); PH URINE 8.5 (4.5-8.0); PROTEIN URINE 2+ (NEGATIVE); SPECIFIC GRAVITY URINE 1.019 (1.005-1.030); UROBILINOGEN URINE 0.2 E.U./dL (0.2-1.0)
[2020-09-08] MEDS ORDERED: LEVOFLOXACIN 250MG TABLET PO ONE (13:00)
[2020-09-08] MEDS ORDERED: LEVO750T46 MT (13:20)
[2020-09-08 14:17] VITALS: BP 122/78
== END 2020-09-08 17:00 | disposition home or self-care (01) ==
LOC: ER 11:48
DX: T83.098A Other mechanical complication of other urinary catheter, initial encounter (principal); N39.0 Urinary tract infection, site not specified; F20.9 Schizophrenia, unspecified; G82.20 Paraplegia, unspecified; Y84.6 Urinary catheterization as the cause of abnormal reaction of the patient, or of later complication, without mention of misadventure at the time of the procedure; Y92.018 Other place in single-family (private) house as the place of occurrence of the external cause
CPT/HCPCS: 81003; 87086; 99283; Z7610